=== PATIENT | female | born 1960 | race Caucasian/White ===

== ENCOUNTER → 2016-04-21 | Outpatient (CLI) | payer OTHER ==
[~2016-04-21] MED LIST: CHOL1TAB42 PO; CHOL20007 PO; CYAN100020 PO; HYDR-5688 PO; LYR50 PO; ONDA4TAB10 SL; PANT1TAB3 PO; RIZA10TA18 PO; TRAM-10 PO
[2016-04-21 10:53] LABS: ESTIMATED AVERAGE GLUCOSE 128 mg/dl; HA1C FLAG Normal (Normal)
[2016-04-21 10:56] LABS: BLOOD UREA NITROGEN 10 mg/dl (7-18); BUN/CREATININE RATIO 14.1 (10-20); CALCIUM 8.5 mg/dl (8.5-10.1); CARBON DIOXIDE 30 mmol/L (21-32); CHLORIDE 107 mmol/L (98-107); CHOLESTEROL 173 mg/dl (0-200); CREATININE 0.69 mg/dl (0.60-1.20); GLUCOSE 83 mg/dl (70-99); SODIUM 143 mmol/L (136-145); TRIGLYCERIDES 146 mg/dl (0-150); VERY LOW DENSITY LIPOPROT CALC 29 mg/dl
[2016-04-21 11:01] LABS: CHOLESTEROL/HDL RATIO 4.1; HDL CHOLESTEROL 42 mg/dl; LDL CHOLESTEROL CALCULATED 102 mg/dl
== END | disposition home or self-care (01) ==
LOC: C.LAB 09:15
PROVIDERS: ATTEND Nurse Practitioner
DX: Z13.220 Encounter for screening for lipoid disorders (principal); G47.30 Sleep apnea, unspecified; R73.01 Impaired fasting glucose; G62.9 Polyneuropathy, unspecified; E55.9 Vitamin D deficiency, unspecified

== ENCOUNTER → 2016-05-19 | Outpatient (CLI) | payer OTHER ==
[~2016-05-19] MED LIST changes: -CHOL1TAB42 PO; -HYDR-5688 PO; -ONDA4TAB10 SL; -PANT1TAB3 PO; +PANT1TAB48 PO; -RIZA10TA18 PO
--- NOTE | 2016-05-19 12:47 | MAMMOGRAPHY REPORT ---
BILATERAL DIGITAL SCREENING MAMMOGRAM TOMOSYNTHESIS WITH CAD: 05/19/2016 CLINICAL HISTORY: Routine screening. Patient has no complaints. TECHNIQUE: Breast tomosynthesis in addition to standard 2D mammography was performed. Current study was also evaluated with a Computer Aided Detection (CAD) system. COMPARISON: Comparison is made to exams dated: 08/15/2014 mammogram, 06/26/2013 mammogram, 07/09/2009 mammogram, 07/09/2009 ultrasound, and 07/03/2009 mammogram - [facility]. BREAST COMPOSITION: There are scattered areas of fibroglandular density in both breasts. FINDINGS: No suspicious masses, calcifications, or areas of architectural distortion are noted in e ither breast. There has been no significant interval change compared to prior exams. Focal asymmetr y in the right upper outer quadrant anteriorly is stable dating back to at least 2009 exam. IMPRESSION: ACR BI-RADS CATEGORY 2: BENIGN There is no mammographic evidence of malignancy. A 1 year screening mammogram is recommended. The p atient will receive written notification of the results. Approximately 10% of breast cancers are not detected with mammography. A negative mammographic repor t should not delay biopsy if a clinically suggestive mass is present. Brandy Saucedo M.D. /:05/19/2016 11:25:59 [employer] Operator: Rosa Isela Washington, [facility] letter sent: Normal 1/2 BI-RADS Code: ACR BI-RADS Category 2: Benign
== END | disposition home or self-care (01) ==
LOC: C.MAMM 10:41
PROVIDERS: ATTEND Nurse Practitioner
DX: Z12.31 Encounter for screening mammogram for malignant neoplasm of breast (principal)

== ENCOUNTER → 2016-05-26 | Outpatient (CLI) | payer OTHER ==
--- NOTE | 2016-05-26 09:51 | DIAGNOSTIC IMAGING REPORT ---
RIGHT WRIST MIN 3 VIEWS ROUTINE CLINICAL HISTORY: RIGHT WRIST PAIN Right COMPARISON: None. DISCUSSION: The bones and joint spaces appear intact. There is no evidence of fracture, dislocation or bony disease. There is no evidence for soft tissue swelling. IMPRESSION: Negative study. Electronically signed by: Js Burnham M.D. 05/26/2016 9:49 AM Dictated Date/Time: 05/26/2016 9:48 AM
== END | disposition home or self-care (01) ==
LOC: C.RADPV 09:32
PROVIDERS: ATTEND Family Medicine
DX: M25.531 Pain in right wrist (principal)

== ENCOUNTER → 2016-08-09 | Outpatient (CLI) | payer OTHER ==
[~2016-08-09] MED LIST changes: +CHOL1TAB42 PO; +HYDR-5688 PO; +ONDA4TAB10 SL; +RIZA10TA18 PO
[2016-08-09 17:36] LABS: BASO % 0.2 %; BASO ABS # 0.01 K/uL (0-0.2); COMPLETE YES; EOS % 1.4 %; HEMATOCRIT 40.3 % (37-47); IG% 0.2 %; LYMPH % 37.7 %; LYMPH ABS # 2.23 K/uL (1.2-3.4); MEAN CELL VOLUME 92.6 fL (80-100); MEAN CORPUSCULAR HEMOGLOBIN 29.7 pg (25-34); MEAN PLATELET VOLUME 10.4 fL (7.4-10.4); MONO % 7.6 %; NEUT % 52.9 %; PLATELET COUNT 254 K/uL (130-400); RED BLOOD COUNT 4.35 M/uL (4.2-5.4); WHITE BLOOD COUNT 5.91 K/uL (4.8-10.8)
[2016-08-09 18:36] LABS: BLOOD UREA NITROGEN 7 mg/dl (7-18); CALCIUM 8.5 mg/dl (8.5-10.1); CARBON DIOXIDE 31 mmol/L (21-32); CHLORIDE 109 mmol/L (98-107); CREATININE 0.75 mg/dl (0.60-1.20); GLUCOSE 85 mg/dl (70-99); SODIUM 144 mmol/L (136-145)
== END | disposition home or self-care (01) ==
LOC: C.LABPVFM 12:02
PROVIDERS: ATTEND Nurse Practitioner
DX: G43.709 Chronic migraine without aura, not intractable, without status migrainosus (principal); R53.83 Other fatigue

== ENCOUNTER → 2016-10-05 | Outpatient (CLI) | payer OTHER ==
--- NOTE | 2016-10-05 11:54 | DIAGNOSTIC IMAGING REPORT ---
MRI OF THE LEFT ANKLE NO CONTRAST CLINICAL HISTORY: PERONEAL TENDONITIS persistent pain despite orders injections COMPARISON STUDY: No previous studies for comparison. FINDINGS: Imaging was performed in the sagittal, coronal, and axial planes. There are no areas of marrow edema to indicate occult fracture or bone bruise. There is no evidence of ligamentous disruption. There are no findings to indicate avascular necrosis. There is no pathologic joint effusion. No tendon tears are visualized. There is no evidence of significant tendinopathy. IMPRESSION: No significant abnormalities identified. Electronically signed by: Lukas Coppola M.D. 10/05/2016 11:53 AM Dictated Date/Time: 10/05/2016 11:47 AM
== END | disposition home or self-care (01) ==
LOC: C.MRI 10:13
PROVIDERS: ATTEND Podiatrist
DX: M76.72 Peroneal tendinitis, left leg (principal); M79.672 Pain in left foot

== ENCOUNTER → 2016-11-08 | Outpatient (CLI) | payer OTHER ==
[~2016-11-08] MED LIST changes: -CHOL1TAB42 PO; -HYDR-5688 PO; -ONDA4TAB10 SL; -RIZA10TA18 PO
--- NOTE | 2016-11-08 09:53 | DIAGNOSTIC IMAGING REPORT ---
RIGHT FINGER(S) MIN 2 VIEWS ROUTINE CLINICAL HISTORY: THUMB PAIN Right pain COMPARISON: None. DISCUSSION: Mild degenerative change first carpometacarpal joint as well as interphalangeal joint. No acute bony abnormality. Cortical margins are intact. There are no abnormal soft tissue calcifications. There is no evidence for soft tissue swelling. IMPRESSION: Mild degenerative change as discussed. No acute process. The above report was generated using voice recognition software. It may contain grammatical, syntax or spelling errors. Electronically signed by: Js Burnham M.D. 11/08/2016 9:51 AM Dictated Date/Time: 11/08/2016 9:51 AM
== END ==
LOC: C.RADPV 09:28
PROVIDERS: ATTEND Nurse Practitioner
DX: M79.644 Pain in right finger(s) (principal); M77.8 Other enthesopathies, not elsewhere classified

== ENCOUNTER 2017-03-14 06:56 | Emergency (ER) | payer OTHER ==
[~2017-03-14] VITALS: Ht 165.1 cm; Wt 86.5 kg
[2017-03-14 07:00] VITALS: TEMP 36.3; Ht 165.1 cm; Wt 86.5 kg
[2017-03-14] MEDS ORDERED: ONDANSETRON INJ 2 MG/ML 2 ML VIAL IV STA ×2 (07:16→09:29)
[2017-03-14] MEDS ORDERED: SODIUM CHLORIDE 0.9% 1000ML 1,000 ML IV STA (07:16)
--- NOTE | 2017-03-14 07:39 | DIAGNOSTIC IMAGING REPORT ---
CHEST ONE VIEW PORTABLE CLINICAL HISTORY: ABDOMINAL PAIN/GI pain COMPARISON STUDY: 04/02/2015 FINDINGS: The bones soft tissues and hemidiaphragms are normal. The cardiomediastinal silhouette is normal. The lungs are clear. The pulmonary vasculature is normal. IMPRESSION: Negative chest. The above report was generated using voice recognition software. It may contain grammatical, syntax or spelling errors. Electronically signed by: Js Burnham M.D. 03/14/2017 7:38 AM Dictated Date/Time: 03/14/2017 7:36 AM
[2017-03-14 07:44] LABS: BASO % 0.2 %; BASO ABS # 0.01 K/uL (0-0.2); COMPLETE YES; EOS % 2.2 %; IG% 0.2 %; LYMPH % 35.4 %; LYMPH ABS # 1.74 K/uL (1.2-3.4); MEAN CELL VOLUME 90.9 fL (80-100); MEAN CORPUSCULAR HEMOGLOBIN 28.5 pg (25-34); MEAN CORPUSCULAR HGB CONC 31.4 g/dl (32-36); MEAN PLATELET VOLUME 10.2 fL (7.4-10.4); MONO % 9.4 %; NEUT % 52.6 %; PLATELET COUNT 217 K/uL (130-400); RED BLOOD COUNT 4.07 M/uL (4.2-5.4); WHITE BLOOD COUNT 4.91 K/uL (4.8-10.8)
[2017-03-14 07:47] LABS: URINE APPEARANCE CLEAR (CLEAR); URINE BILIRUBIN NEG (NEG); URINE COLOR YELLOW; URINE NITRITE NEG (NEG); URINE SPECIFIC GRAVITY 1.018 (1.000-1.030); UROBILINOGEN NEG (NEG)
[2017-03-14 07:48] LABS: MANUAL MICROSCOPIC REQUIRED? NO; REVIEW REQ? YES
[2017-03-14 07:58] LABS: URINE EPITHELIAL CELL AUTO 20-30 /lpf (0-5)
[2017-03-14] MEDS ORDERED: RIZA10TA18 PO (08:08)
[2017-03-14] MEDS ORDERED: CHOL1TAB42 PO (08:08)
[2017-03-14 08:26] LABS: ALKALINE PHOSPHATASE 102 U/L (45-117); ALT/SGPT 19 U/L (12-78); AST/SGOT 29 U/L (15-37); BLOOD UREA NITROGEN 13 mg/dl (7-18); CALCIUM 8.6 mg/dl (8.5-10.1); CARBON DIOXIDE 23 mmol/L (21-32); CHLORIDE 109 mmol/L (98-107); CREATININE 0.76 mg/dl (0.60-1.20); GLUCOSE 102 mg/dl (70-99); POTASSIUM 3.6 mmol/L (3.5-5.1); SODIUM 142 mmol/L (136-145)
[2017-03-14] MEDS ORDERED: OPTIRAY 320 IV PRN (08:45)
--- NOTE | 2017-03-14 10:42 | DIAGNOSTIC IMAGING REPORT ---
ABD/PELVIS IV AND ORAL CONT CT DOSE: 726.65 mGy.cm HISTORY: Pain ABDOMINAL PAIN/GI TECHNIQUE: Multiaxial CT images of the abdomen and pelvis were performed following the use of intravenous and oral contrast. A dose lowering technique was utilized adhering to the principles of ALARA. COMPARISON STUDY: 06/10/2015 FINDINGS: Lung bases are clear. Small hiatal hernia. Prior gastric bypass type procedure. Abdominal bowel pattern is nonobstructive. Pancreas and spleen are unremarkable. Kidneys negative for mass or hydronephrosis. Normal appendix. Findings of chronic sigmoid diverticulosis with a trace amount of acute diverticular change of the proximal left anterior sigmoid. Trace reactive free fluid within the pelvic cul-de-sac. No evidence for drainable abscess or collection. IMPRESSION: 1. Mild proximal sigmoid diverticulitis. 2. Mild pericolonic infiltrative change, with no evidence for drainable abscess or collection. 3. Nonobstructive bowel pattern. 4. Normal appendix with a nonobstructive bowel pattern. 5. Incidental postoperative change The above report was generated using voice recognition software. It may contain grammatical, syntax or spelling errors. Electronically signed by: Js Burnham M.D. 03/14/2017 10:41 AM Dictated Date/Time: 03/14/2017 10:38 AM
[2017-03-14] MEDS ORDERED: HYDR-5688 PO (11:07)
[2017-03-14] MEDS ORDERED: ONDA4TAB10 SL (11:07)
[2017-03-14 11:20] VITALS: BP 153/77; PULSE 73; O2SAT 99
--- NOTE | 2017-03-14 16:56 | EMERGENCY ROOM VISIT NOTE ---
ED Visit Note First contact with patient: 06:58 Chief Complaint: Abdominal pain. History of Present Illness: Ms. Alvarado is a 56 year-old white female who ambulates into the ED complaining of left lower quadrant quadrant abdominal pain. Historically patient reports history of diverticulitis, gastric reflux and is status post hysterectomy and gastric bypass. Patient reports a gradual onset of left lower quadrant abdominal pain that started approximately 6 days ago. Since that time the pain has been constant and has been increasing in intensity. She was seen by her PCP on Tuesday, 2 days ago, and was started on Cipro and Flagyl. The pain is currently described as a deep achy sensation. The pain is nonradiating. She rates her discomfort 4/10. Her pain worsens when she has a bowel movement. She has not identified any alleviating factors related to her discomfort. She does report she has been taken OxyIR from a previous prescription and has had moderate relief of her discomfort; her last dose was approximately 10:00 last evening. Associated with her pain she reports today she has been having chills and has been nauseated but has not vomited. Additionally she reports last night she developed a fullness sensation in the midsternal area. This is similar to her previous episodes of her GERD exacerbation. She has been using her Protonix and has had no relief of her discomfort. Since its onset last night approximately 10 hours ago the fullness sensation has been constant. Currently she rates this discomfort 4/10. She has not identified any aggravating or alleviating factors related to the discomfort. She has not taken any other medications except for her GERD medications for this discomfort. She does report that as previously noted she has been having chills and nausea but feels that is more related to her left lower quadrant pain. Historically patient does report she has a history of hypertension and diabetes but has no coronary artery disease and she has no family history of coronary artery disease. Patient denies fevers, sweats, skin eruptions, skin color changes, upper respiratory tract symptoms, shortness of breath, diarrhea, constipation, rectal bleeding, black/tarry stools, urinary symptoms, hematuria, vaginal bleeding, vaginal discharge, back/flank pain. Review of Systems: As noted above in history of present illness. All body systems were reviewed and found to be negative as noted above. Past Medical History: As previously noted, hypertension, neuropathy, and status post carpal tunnel release. Current Medications: Medications Dose Route/Sig Max Daily Dose Days Date Category Dose Instructions Maxalt (Rizatriptan Benzoate) Unknown Strength Tab 1 Tab PO UD PRN 03/14/17 Reported Vitamin D (Cholecalciferol) 5,000 Unit Tab 5,000 Units PO DAILY 03/14/17 Reported Lyrica (Pregabalin) 50 Mg Cap 50 Mg PO TID 04/04/15 Reported Vitamin B12 (Cyanocobalamin) 1,000 Mcg Tab 1,000 Mcg PO QAM 01/17/15 Reported Ultram (Tramadol HCl) 50 Mg Tab 50-100 Mg PO BID PRN 03/21/14 Reported Protonix (Pantoprazole) 40 Mg Tab 40 Mg PO QAM 07/04/13 Reported Allergies to Medications: Patient denies. Social History: Patient is currently employed; she feels safe in her home environment; she admits to tobacco use and denies alcohol use. Physical Examination: Vital Signs: Date Time Temp Pulse Resp B/P (MAP) Pulse Ox O2 Delivery O2 Flow Rate FiO2 03/14/17 10:48 69 18 114/74 99 Room Air 03/14/17 09:15 50 16 127/76 98 Room Air 03/14/17 07:47 59 16 142/88 99 Room Air 03/14/17 07:45 74 03/14/17 07:00 36.3 75 17 141/82 100 Room Air GENERAL: 50-year-old female in mild distress due to pain, nontoxic-appearing, afebrile and hemodynamically stable. NEUROLOGICAL: Awake, alert and oriented to person, place and time. Answering questions appropriately and following commands. Normal gait. Good hand eye coordination. SKIN: Warm, dry and pink. No soft tissue eruptions or trauma noted. HEENT: Atraumatic and normocephalic. PERRLA. Airway is patent. Pharynx is nonerythematous or edematous. Speech normal. No lymphadenopathy. Trachea midline. No jugular venous distention. No carotid bruits. BACK: No tenderness over the bony spine. No CVA tenderness. THORAX: Lungs sounds are clear to auscultation and equal bilaterally with symmetrical chest wall. No wheezing, rales or rhonchi. No crepitus, tenderness , subcutaneous air or deformities noted. HEART: Regular rate and rhythm. No gallops, rubs or murmurs are appreciated. PMI is not displaced. No lifts, heaves or thrills. ABDOMEN: Flat and soft with mild left lower quadrant pain. Decreased bowel sounds in all quadrants. No guarding, rigidity or organomegaly. EXTREMITIES: Moves all extremities well on command and with purpose. All distal neurovascular statuses are intact and equal bilaterally. ED Course: Patient is assessed as noted above. Laboratory Testing: Test 03/14/17 07:17 03/14/17 07:27 03/14/17 07:45 Range/Units Urine Color YELLOW Urine Appearance CLEAR CLEAR Urine pH 5.0 4.5-7.5 Urine Specific [place] 1.018 1.000-1.030 Urine Protein NEG NEG Urine Glucose (UA) NEG NEG Urine Ketones NEG NEG Urine Occult Blood NEG NEG Urine Nitrite NEG NEG Urine Bilirubin NEG NEG Urine Urobilinogen NEG NEG Urine Leukocyte Esterase TRACE NEG Urine WBC (Auto) 1-5 0-5 /hpf Urine RBC (Auto) 0-4 0-4 /hpf Urine Hyaline Casts (Auto) 1-5 0-5 /lpf Urine Epithelial Cells (Auto) 20-30 0-5 /lpf Urine Bacteria (Auto) NEG NEG Urine Renal Epithelial Cells 0-5 /lpf White Blood Count 4.91 4.8-10.8 K/uL Red Blood Count 4.07 4.2-5.4 M/uL Hemoglobin 11.6 12.0-16.0 g/dL Hematocrit 37.0 37-47 % Mean Corpuscular Volume 90.9 80-100 fL Mean Corpuscular Hemoglobin 28.5 25-34 pg Mean Corpuscular Hemoglobin Concent 31.4 32-36 g/dl Platelet Count 217 130-400 K/uL Mean Platelet Volume 10.2 7.4-10.4 fL Neutrophils (%) (Auto) 52.6 % Lymphocytes (%) (Auto) 35.4 % Monocytes (%) (Auto) 9.4 % Eosinophils (%) (Auto) 2.2 % Basophils (%) (Auto) 0.2 % Neutrophils # (Auto) 2.58 1.4-6.5 K/uL Lymphocytes # (Auto) 1.74 1.2-3.4 K/uL Monocytes # (Auto) 0.46 0.11-0.59 K/uL Eosinophils # (Auto) 0.11 0-0.5 K/uL Basophils # (Auto) 0.01 0-0.2 K/uL RDW Standard Deviation 50.6 36.4-46.3 fL RDW Coefficient of Variation 15.1 11.5-14.5 % Immature Granulocyte % (Auto) 0.2 % Immature Granulocyte # (Auto) 0.01 0.00-0.02 K/uL Sodium Level 142 136-145 mmol/L Potassium Level 3.6 3.5-5.1 mmol/L Chloride Level 109 98-107 mmol/L Carbon Dioxide Level 23 21-32 mmol/L Anion Gap 10.0 3-11 mmol/L Blood Urea Nitrogen 13 7-18 mg/dl Creatinine 0.76 0.60-1.20 mg/dl Est Creatinine Clear Calc Drug Dose 90.8 ml/min Estimated GFR () 102.3 Estimated GFR (Non- 88.3 BUN/Creatinine Ratio 17.0 10-20 Random Glucose 102 70-99 mg/dl Calcium Level 8.6 8.5-10.1 mg/dl Total Bilirubin 0.3 0.2-1 mg/dl Direct Bilirubin < 0.1 0-0.2 mg/dl Aspartate Amino Transf (AST/SGOT) 29 15-37 U/L Alanine Aminotransferase (ALT/SGPT) 19 12-78 U/L Alkaline Phosphatase 102 45-117 U/L Total Protein 6.4 6.4-8.2 gm/dl Albumin 3.2 3.4-5.0 gm/dl Lipase 126 73-393 U/L Chemistry Specimen Hemolysis Bedside Troponin I < 0.030 0-0.045 ng/ml Chest X-Ray: Was read by myself and the radiologist showing no acute infiltrates , effusions or pneumothorax. Normal heart silhouette and bony anatomy. EKG: Was read by myself and shows sinus bradycardia with ventricular rate of 55 bpm. Normal axis, intervals and complexes. No acute ST changes indicating ischemia, injury or infarction. Compared to previous from March 2015 in no acute changes were noted. Contrast Abdominal/Pelvic CT: Was reviewed by myself and read by the radiologist showing mild proximal sigmoid diverticulitis with mild pericolonic infiltration with no evidence of drainable abscess or collection; no bowel obstructive pattern; normal-appearing appendix. Patient was hydrated with normal saline and initially received 4 mg of Zofran IV for nausea; she refused pain medications. Patient was reassessed multiple times during her stay in the emergency department. Patient's case was reviewed with Dr. Allen; we agreed on diagnostic approach, treatment, disposition and plan. Patient was educated about today's findings and instructed on her treatment plan ; she verbalized understanding and agreement with this plan. Clinical Impression: Sigmoid diverticulitis. Chest discomfort. Decision-Making: Initially for her abdominal pain I considered diverticulitis, bowel obstruction, perforated viscus, colitis, nephrolithiasis and for her chest pain I considered acute coronary syndrome, thoracic aneurysm, pneumothorax , pneumonia, pulmonary embolism and other causes. Disposition: Patient discharged home in stable condition; prior to departure she was reassessed and subjectively reported she was feeling much better and reported that she had resolution of chest discomfort and her abdominal pain was rated 3/10. Plan: Patient was encouraged to continue her medications including her antibiotics as prescribed. Patient was described Zofran 4 mg every 6 hours as needed for nausea/vomiting per Patient was placed on a sliding pain medication scale of acetaminophen and [place] ; her name was checked on the state database and no red flags were noted and she was given appropriate narcotic precautions. Patient was encouraged to increase clear fluids and stay well-hydrated and use a bland diet. Patient was encouraged to call her family physician and request follow-up care and treatment. Patient was encouraged return ED for uncontrolled pain, uncontrolled vomiting, bloody vomitus, bloody stools, fevers or any new/concerning symptoms.
== END 2017-03-14 11:20 | disposition home or self-care (01) ==
LOC: C.EDB 06:57
DX: K57.32 Diverticulitis of large intestine without perforation or abscess without bleeding (principal); R07.9 Chest pain, unspecified; K21.9 Gastro-esophageal reflux disease without esophagitis; F17.200 Nicotine dependence, unspecified, uncomplicated

== ENCOUNTER → 2017-06-21 | Outpatient (CLI) | payer OTHER ==
[~2017-06-21] MED LIST changes: +CHOL1TAB42 PO; -CHOL20007 PO; +HYDR-5688 PO; +ONDA4TAB10 SL; +PANT1TAB3 PO; -PANT1TAB48 PO; +RIZA10TA18 PO
[2017-06-21 10:05] LABS: BASO % 0.2 %; BASO ABS # 0.01 K/uL (0-0.2); EOS % 2.1 %; EOS ABS # 0.11 K/uL (0-0.5); HEMATOCRIT 38.4 % (37-47); HEMOGLOBIN 12.4 g/dL (12.0-16.0); IG# 0.01 K/uL (0.00-0.02); LYMPH % 41.3 %; LYMPH ABS # 2.17 K/uL (1.2-3.4); MEAN CELL VOLUME 89.9 fL (80-100); MEAN CORPUSCULAR HGB CONC 32.3 g/dl (32-36); MEAN PLATELET VOLUME 9.9 fL (7.4-10.4); MONO % 7.6 %; NEUT % 48.6 %; NEUT ABS # 2.56 K/uL (1.4-6.5); PLATELET COUNT 234 K/uL (130-400); RED CELL DISTRIBUTION WIDTH CV 14.3 % (11.5-14.5); RED CELL DISTRIBUTION WIDTH SD 46.7 fL (36.4-46.3); WHITE BLOOD COUNT 5.26 K/uL (4.8-10.8)
[2017-06-21 10:32] LABS: HEMOGLOBIN A1C 6.1 % (4.5-5.6)
[2017-06-21 10:42] LABS: BLOOD UREA NITROGEN 13 mg/dl (7-18); CALCIUM 8.6 mg/dl (8.5-10.1); CARBON DIOXIDE 28 mmol/L (21-32); CHOLESTEROL 179 mg/dl (0-200); CREATININE 0.72 mg/dl (0.60-1.20); GLUCOSE 83 mg/dl (70-99); POTASSIUM 4.3 mmol/L (3.5-5.1); SODIUM 141 mmol/L (136-145)
[2017-06-21 10:45] LABS: LDL CHOLESTEROL CALCULATED 117 mg/dl
== END | disposition home or self-care (01) ==
LOC: C.LAB 09:38
PROVIDERS: ATTEND Nurse Practitioner
DX: R73.01 Impaired fasting glucose (principal); F32.9 Major depressive disorder, single episode, unspecified; R53.83 Other fatigue; Z13.220 Encounter for screening for lipoid disorders

== ENCOUNTER 2017-11-20 10:01 | Emergency (ER) | payer OTHER ==
[~2017-11-20] VITALS: Ht 167.6 cm; Wt 79.4 kg
[~2017-11-20 10:01] MED LIST changes: -HYDR-5688 PO; -ONDA4TAB10 SL
[2017-11-20 10:04] VITALS: BP 133/76; PULSE 62; TEMP 36.7; O2SAT 100; Ht 167.6 cm; Wt 79.4 kg
[2017-11-20] MEDS ORDERED: PENI-82 PO (10:36)
[2017-11-20] MEDS ORDERED: PENICILLIN V POTASSIUM 250 MG TAB PO ONE (10:45)
[2017-11-20] MEDS ORDERED: DICL1TAB5 PO (10:52)
[2017-11-20] MEDS ORDERED: PRT/20 PO (10:52)
--- NOTE | 2017-11-20 14:19 | EMERGENCY ROOM VISIT NOTE ---
History Report prepared by Victoriano: Ariella Odonnell Under the Supervision of: Dr. Dagoberto Lim M.D. First contact with patient: 10:11 Chief Complaint: THROAT PAIN/INJURY Stated Complaint: SORE THROAT, RIGHT JAW PAIN History of Present Illness The patient is a 57 year old female who presents to the Emergency Room with complaints of a sorethroat beginning yesterday. The patient reports having swollen glands on the right side of her face and states that she has some pain with swallowing. The patient states that she has also had jaw pain. She reports having a cough but denies having fevers, nausea, vomiting, diarrhea, swelling, abdominal pain, urinary symptoms, and a rash. The patient reports that her grandson was recently diagnosed with strep throat and she states that she has not seen him in a week. The patient reports trying Tylenol and Ibuprofen for her pain but reports that Tylenol did not alleviate her pain. She reports a history of a hysterectomy and gastric bypass surgery. Source of History: patient Onset: yesterday Position: throat Quality: other (sorethroat) Modifying Factors (Worsening): other (swallowing) Associated Symptoms: + cough, No fevers, No nausea, No vomiting, No abdominal pain, No diarrhea, No urinary symptoms, No rash Review of Systems See HPI for pertinent positives and negatives. A total of 6 systems were reviewed and were otherwise negative. Past Medical & Surgical Medical Problems: (1) Acute Pharyngitis (2) Anemia Nos (3) Cystitis Nos (4) Diab Bridget Wo Compl, Type Ii Or Unspec Type, Uncontrolled (5) Diverticulitis (6) Hypertension Nos (7) Reflux Esophagitis Surgical Problems: (1) H/O gastric bypass (2) H/O: hysterectomy (3) Hx of tubal ligation Family History Cancer Cardiovascular disease Diabetes mellitus Gallbladder disease Heart disease Hypertension Kidney disease Lung disease Social History Smoking Status: Current Every Day Smoker Alcohol Use: occasionally Drug Use: none Marital Status: Occupation Status: employed Current/Historical Medications Scheduled Cyanocobalamin (Vitamin B12), 1,000 MCG PO QAM Diclofenac (Voltaren ), 1 TAB PO BID Pantoprazole (Protonix), 20 MG PO DAILY Penicillin V Potassium (Veetids), 500 MG PO QID Pregabalin (Lyrica), 50 MG PO TID Scheduled PRN Rizatriptan Benzoate (Maxalt), 1 TAB PO UD PRN for Migraine Tramadol (Ultram), 50-100 MG PO BID PRN for Pain Allergies Coded Allergies: No Known Allergies (Verified , 11/20/17) Physical Exam Vital Signs Date Time Temp Pulse Resp B/P (MAP) Pulse Ox O2 Delivery O2 Flow Rate FiO2 11/20/17 10:20 Room Air 11/20/17 10:04 36.7 62 18 133/76 100 Room Air Physical Exam GENERAL: Awake, alert, well-appearing, in no distress HENT: Normocephalic, atraumatic. Right anterior adenopathy. Mildly tender. Poor dentition. No obvious dental abscess. Floor of mouth is soft and there is minimal erythema in the oropharynx. EYES: Normal conjunctiva. Sclera non-icteric. NECK: Supple. No nuchal rigidity. FROM. No masses. RESPIRATORY: Clear to auscultation. No wheezes. No rales. Normal respiratory effort. CARDIAC: Normal rate. Normal rhythm. No murmurs. No rubs. Extremities warm and well perfused. Pulses equal. No JVD. GI: Soft, non-distended. No tenderness to palpation. No rebound or guarding. No masses. MUSCULOSKELETAL: Atraumatic. LOWER EXTREMITIES: No edema. No discoloration. NEURO: Normal sensorium. No sensory or motor deficits noted. SKIN: No rash or jaundice noted. Medical Decision & Procedures Medications Administered Medications (Trade) Dose Ordered Sig/Geronimo Route Start Time Stop Time Status Last Admin Dose Admin Penicillin V Potassium (Veetids Tab) 500 mg ONE ONCE PO 11/20/17 10:45 11/20/17 10:46 DC 11/20/17 10:39 500 MG ED Course 1028: The patient was evaluated in room A11B. A complete history and physical exam was performed. 1045: Ordered Penicillin V Potassium 500 mg PO. 1050: The patient verbalized understanding and agreement. The patient is ready for discharge. Medical Decision Prior records/ancillary studies reviewed. Triage Nursing notes reviewed and agree them. The patient's history was concerning for swollen glands, sore throat, and exposure to strep Differential diagnosis: Etiologies such as streptococcal pharyngitis, mononucleosis,peritonsillar abscess, viral syndrome, retropharyngeal abscess, tonsillitis, otitis, dental infection, as well as others were entertained. ER treatment provided: Oral penicillin On reassessment the patient felt better. Diagnostics interpreted by me: Deferred. The patient has some sore throat, mild adenopathy, and erythema. She has exposure to a patient with known strep. Diagnostic imaging was felt to be unnecessary. Further testing was felt to be unnecessary. I did discuss this with the patient. Shared decision making was utilized to simply treat the patient on clinical grounds. She felt very comfortable with this plan. If she worsens in any way she will be back. She will follow-up with her primary clinic. Patient was educated. By the evaluation outlined above other emergent etiologies such as those listed in the differential, as well as others, were deemed relatively unlikely. The patient was educated about the findings as listed above. All questions were answered and the patient was pleased with the treatment. Return instructions were outlined and the patient was discharged in stable condition. The patient was referred to her PCP for follow-up for a recheck of the current condition. Medication Reconcilliation Current Medication List: was personally reviewed by me Blood Pressure Screening Patient's blood pressure: Normal blood pressure Impression Primary Impression: Sorethroat Additional Impression: Lymphadenopathy Scribe Attestation The scribe's documentation has been prepared under my direction and personally reviewed by me in its entirety. I confirm that the note above accurately reflects all work, treatment, procedures, and medical decision making performed by me. Departure Information Dispostion Home / Self-Care Prescriptions Penicillin V Potassium (Veetids) 500 Mg Tab 500 MG PO QID, #39 TAB Prov: Dagoberto Lim MD 11/20/17 Referrals Tracy Witt C.[email or web address] (PCP) Forms HOME CARE DOCUMENTATION FORM, IMPORTANT VISIT INFORMATION, WORK / SCHOOL INSTRUCTIONS Patient Instructions [facility] Additional Instructions Return to emergency department for increased swelling, pain, difficulty swallowing or breathing, vomiting, medication problems, or as needed. Penicillin (Pen VK) 500mg: Take one pill four times daily for 10 days for your infection. All antibiotics can cause diarrhea. If this occurs and you feel worse or it does not resolve in 1-2 days follow up with your doctor or return to the Emergency Department as this could be signs of serious underlying problems. Any medication can cause an allergic reaction, stop the pills immediately and return to the ER for rash, hives, breathing difficulties, or swelling. Tylenol: Take 1000 mg every 6 hours as needed for pain. Do not take more than 3000 mg in a 24 hour period. Cepacol or similar throat lozenges as needed. Salt water gargle every 2-3 hours as needed. Follow-up with your primary care physician in 2 to 3 days for a recheck of your current condition. Problem Qualifiers
== END 2017-11-20 11:06 | disposition home or self-care (01) ==
LOC: C.EDB 10:03 → C.EDA 11:06
DX: R07.0 Pain in throat (principal); R59.1 Generalized enlarged lymph nodes; E11.9 Type 2 diabetes mellitus without complications; I10 Essential (primary) hypertension; F17.200 Nicotine dependence, unspecified, uncomplicated; Z79.899 Other long term (current) drug therapy